=== PATIENT | female | born 1940 | race Caucasian/White ===

== ENCOUNTER 2019-03-26 05:57 | Inpatient (IN) | payer MEDICARE, OTHER ==
[~2019-03-26] VITALS: Ht 157.5 cm; Wt 59.4 kg
[2019-03-26] VITALS (38 sets, daily range): BP systolic 88–164; BP diastolic 39–77
[~2019-03-26 05:57] MED LIST: ASA81BEC PO; BACLOFEN 10MG T10 MG PO; HUMALOG100 UNIT/1 SUBQ; IPRAT-ALBUT 0.5-3 ML INH; ISOSORBIDE DINI30 MG PO; LANTUS SUBQ; LEVOXYL112 MCG PO; LIPITOR40 MG PO; MELOXICAM15 MG PO; NEURONTIN300 MG PO; PULMICORT1 MG/2 ML INH; TOPROL XL50 MG PO; XARELTO20 MG PO
[2019-03-26 06:55] LABS: ABSOLUTE LYMPHOCYTES 0.6 thou/uL (0.8-5.3); ABSOLUTE NEUTROPHILS 4.3 thou/uL (1.6-8.1); BASOPHILS 0.1 %; MCH 28.3 pg (26.0-34.0); MPV 8.7 fl. (7.2-11.1); WBC 5.4 thou/uL (4.0-11.0)
[2019-03-26 06:57] LABS: ABSOLUTE MONOCYTES 0.5 thou/uL (0.0-1.2); EOSINOPHILS 0.6 %; LYMPHOCYTES 10.5 %; MCHC 32.3 g/dL (28.0-37.0); MCV 87.6 fL (80.0-100.0); MONOCYTES 8.4 %; NUCLEATED RBCS 0 /100WBC; PLATELET COUNT* 223 thou/uL (150-400); POLYS 80.4 %; RBC 3.53 mil/uL (4.20-5.00); RDW-CV 14.2 % (10.5-14.5)
[2019-03-26 07:01] LABS: CALCIUM 9.2 mg/dL (8.5-10.1); CREATININE 1.1 mg/dL (0.6-1.3); POTASSIUM 4.7 mmol/L (3.5-5.1)
--- NOTE | 2019-03-26 13:17 | EKG ---
[place] [address] ELECTROCARDIOGRAM REPORT Name: JAJA DIAZ Room: [address] ADM IN ..#: [id number] Admission: 03/26/19 Attend Phys: Harsh Galvan Discharge: Date of : 38 Report #: [id number] THIS REPORT FOR: //name// [facility] Test Date: 2019-03-26 Test Time: 07:28:24 Pat Name: JAJA DIAZ Department: Room: [facility] Gender: F Dimpling Machine Operator: : 1940 Requested By: Eyad Robins Order Number: [id number] Neema MD: Rico Viera Measurements Intervals [place] Rate: 76 P: IN: QRS: 262 QRSD: 108 T: 37 QT: 371 QTc: 418 Interpretive Statements Atrial fibrillation LAD, consider left anterior fascicular block Probable anteroseptal infarct, old No previous ECG available for comparison Electronically Signed On 03-26-2019 13:17:21 KITCHEN MECHANIC by Rico Viera [email or web address] <ELECTRONICALLY SIGNED> By: Rico Viera MD, [facility] 03/26/19 1317 7 7 Rico Viera MD, FACC /EPI
[2019-03-26] MEDS ORDERED: NORCO 5-325 TA1 EAC1 PO (14:16)
--- NOTE | 2019-03-26 18:30 | NUR ---
THIS PRINTED CIRCUIT BOARD LAYOUT DESIGNER ASSUMED CARE OF PT AT 1145 POST SURGERY. PT HAD A SCHEDULED L CARTOID CLEAN OUT TOLERATED WELL INCISION INTACT NO DRAINAGE NOTED AT THIS TIME NO BRUISING DERMABON IN PLACE TO CLOSE. CARDENE TITRATED OFF AT NOON. B/P ON LOW SIDE AROUND 1800 CONTINUE TO MONITOR PT DID RECEIVE PAIN MEDICATION AND MUSCLE RELAXER MAO IS GREATER THAN 65. ADVANCED TO CARB CONTROLLED DIET FOR DINNER CONSUMED ALL OF DINNER FAMILY IN AND OUT OF ROOM THROUGHOUT DAY PT IN BED RESTING
[2019-03-27] VITALS (38 sets, daily range): BP systolic 53–190; BP diastolic 33–112
[2019-03-27 04:32] LABS: HEMOGLOBIN 9.4 gm/dL (12.0-15.0); MCH 28.5 pg (26.0-34.0); MCHC 32.4 g/dL (28.0-37.0); MCV 87.9 fL (80.0-100.0); MPV 8.2 fl. (7.2-11.1); RBC 3.3 mil/uL (4.20-5.00); RDW-CV 14.4 % (10.5-14.5); WBC 8.8 thou/uL (4.0-11.0)
--- NOTE | 2019-03-27 04:32 | NUR ---
PATIENT JUST WOKE UP WHEN LAB WAS TRYING TO DRAW BLOOD, NOTICED A CLEAR CHANGE IN MENTATION. PATIENT ALERT AND ORIENTED X4, APPROPRIATE AND ABLE TO USE THE BEDSIDE COMMODE WITH MINIMAL ASSISTANCE AT THE BEGINNING OF SHIFT. PATIENT DISORIENTED, DOES NOT REMEMBER WHY SHE IS HERE AND REFUSING FOR HER BLOOD TO BE DRAWN. PT ALSO GIGGLES WHEN ASKED IF SHE KNOWS WHERE SHE IS AND OTHER SIMILAR ORIENTATION QUESTIONS AND ASKS STAFF TO "GET OUT OF HERE". PT ASKED TO USE THE COMMODE AND WHEN WENT AHEAD AND URINATED WHILE SITTING AT THE EDGE OF THE BED, REPORTS SHE IS USING THE COMMODE. VITALS STABLE, NO CHANGE TO LEFT NECK CAROTID SIDTE, EQUAL AND STRONG RADIAL PULSES. WILL CONTINUE MONITORING. WILL CONTINUE MONITORING.
[2019-03-27 04:40] LABS: CALCIUM 8.8 mg/dL (8.5-10.1); CREATININE 1.4 mg/dL (0.6-1.3); POTASSIUM 5.1 mmol/L (3.5-5.1)
--- NOTE | 2019-03-27 10:49 | NUR ---
MET WITH PT AND FAMILY CAREGIVER IN PT ROOM. PT ALERT, ORIENTED TO PERSON, BUT MILD CONFUSION, REORIENTS EASILY WHEN INFORMATION IS PROVIDED. AT TIMES, ASKING CATHODE MAKER OR FAMILY TO ANSWER QUESTIONS SHE'S NOT CLEAR ON. NO ANTICIPATED NEEDS FOR DISCHARGE. HAS SUPPORTIVE FAMILY.
[2019-03-27] MEDS ORDERED: TRAMADOL 50 MG50 MG PO (11:02)
--- NOTE | 2019-03-27 12:00 | NUR ---
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
--- NOTE | 2019-03-27 12:55 | NUR ---
PT GOT UP TO WALK AND GET UP TO BSC WITH NURSE BEFORE D/C.PT IS STILL VERY CONFUSED AND JERKY.PT BEGAN TO VOMIT.PT ESCORTED BACK TO BED AND CLEANED UP.VSS.DOCOTOR NOTIFIED.
--- NOTE | 2019-03-27 13:14 | NUR ---
VASCULAR CANCELLED DISCHARGE.WILL MONITOR PT FOR ONE MORE DAY.
--- NOTE | 2019-03-27 17:40 | NUR ---
PT IS STILL VERY CONFUSED.CT OF HEAD COMPLETED.PT APPEARS TO BE MORE CONFUSED WHEN SHE WAKES UP FROM SLEEP.PT YELLED AT GRANDDAUGHTER AND THREATENED TO LEAVE THE HOSPITAL.PT REMAINS ON 2L O2 NC WHILE SLEEPING.PT IS WEAK AND HAS JERKING MOVEMENTS IN ALL EXTREMETIES.NURSES JUDGEMENT WAS USED TO USE A BEDPAN INSTEAD OF GETTING UP FOR THE REST OF THE EVENING.UA COLLECTED.BATH GIVEN.NO C/O PAIN THIS AFTERNOON.PT HAS HAD POOR APPETITE THIS AFTERNOON AND REFUSED TO EAT LUNCH AND DINNER.PT AND FAMILY INFORMED OF PLAN OF CARE AND COMMUNICATES UNDERSTANDING.HOURLY ROUNDING COMPLETED FOR PT SAFETY.CALL LIGHT AND FALL PRECAUTIONS IN PLACE.WILL CONTINUE TO MONITOR FOR DURATION OF SHIFT.
[2019-03-27 17:45] LABS: URINE BILIRUBIN NEGATIVE (Negative); URINE BLOOD NEGATIVE (Negative); URINE CLARITY CLEAR; URINE COLOR YELLOW; URINE GLUCOSE-RANDOM NEGATIVE (Negative); URINE KETONES NEGATIVE (Negative); URINE LEUKOCYTES TRACE (Negative); URINE NITRITE NEGATIVE (Negative); URINE PROTEIN NEGATIVE (Negative); URINE SPECIFIC GRAVITY <= 1.005 (1.005-1.030); URINE UROBILINOGEN 0.2 E.U./dl (0.2-1.0)
[2019-03-27 17:54] LABS: BACTERIA 1-9 Few /HPF (None Seen); CASTS None Seen /LPF (None Seen); CRYSTALS None Seen /LPF (None Seen); SQUAMOUS 0-3 Few /LPF (0-3); URINE RBC 0-2 Rare /HPF (0-2); URINE WBC 0-5 Rare /HPF (0-5)
[2019-03-28] VITALS (13 sets, daily range): BP systolic 105–170; BP diastolic 34–87
--- NOTE | 2019-03-28 05:52 | NUR ---
PT INCREASINGLY CONFUSED THROUGH THE NIGHT, VERY DIFFICULT TO REORIENT. COMPLAINS OF NECK PAIN. GRANDDAUGHTER, JACQUELINE, REPORTS TO THIS NURSE THAT PT WAS PUT ON DEMENTIA MEDICATION ABOUT FOUR MONTHS AGO BUT PT STOPPED TAKING IT BECAUSE IT WASN'T HELPING. OTHERWISE UNEVENTFUL NIGHT. PT EMOTIONAL AT TIMES. SITTER AT BEDSIDE.
[2019-03-28 09:20] LABS: HEMATOCRIT 31.7 % (37.0-47.0); HEMOGLOBIN 10.5 gm/dL (12.0-15.0); MCH 28.8 pg (26.0-34.0); MCV 87.3 fL (80.0-100.0); MPV 8.8 fl. (7.2-11.1); RBC 3.64 mil/uL (4.20-5.00); RDW-CV 14.5 % (10.5-14.5)
[2019-03-28 09:32] LABS: CALCIUM 9.5 mg/dL (8.5-10.1); CREATININE 1.1 mg/dL (0.6-1.3); POTASSIUM 4.8 mmol/L (3.5-5.1)
[2019-03-28] MEDS ORDERED: NEURONTIN600 MG PO (10:17)
--- NOTE | 2019-03-28 10:44 | NUR ---
Discharge Plan: Per Grand-daughter, she and her sister plan to provide 24/7 cares for patient in patient's current apartment when she is stable for discharge. Their prison plan (1-2 months) is to determine which of their home will be safest for patient, and to move patient to one of their homes. I discussed with Dr. Elliott, and also with G-daughter for possible home health at discharge. Dr. Elliott in agreement when patient is more medically stable and closer to discharge readiness. G-daughter with no expressed preference for HH agency when inquired, stating she has no familiarity with any of the agencies. PLAN: remain available to assist with discharge planning readiness.
--- NOTE | 2019-03-28 11:46 | NUR ---
PROVIDED LIST OF HOME HEALTH AGENCIES TO G-DAUGHTER. EXPLAINED HOSPITAL PREFERRED PROVIDER OPTION PART OF COMPLETE LIST. ADVISED FAMILY THIS ALLOWS TIME FOR DISCUSSION WITH OTHER FAMILY FOR AGENCY OF CHOICE. WHEN DR IDENTIFIES TIMELINE CLOSER TO DISCHARGE, DECISION FOR PROVIDER WILL BE MADE AND CAN PROCEED WITH . ORDER TO AGENCY OF FAMILY CHOICE. EXPRESSED UNDERSTANDING AND AGREEMENT.
--- NOTE | 2019-03-28 17:06 | PATH ---
[facility] [address] [place] [address] PATHOLOGY RPT PROCEDURE Name: ZABRINA DIAZ Room: [address] IN ..#: [id number] Admission: 03/26/19 Date of : 38 Discharge: Report #: [id number] Path Case #: [id number] [facility] Accession Number: [id number] . 01 Material submitted: . carotid body - LEFT CAROTID PLAQUE. Modifiers: left . 01 Clinical history: . Left carotid stenosis . 02 Diagnosis: Left carotid plaque: - Fibrointimal atherosclerotic plaque with prominent calcification. (CIELO:pit; 03/28/2019) QTP 03/28/2019 1239 Local . 02 Electronically signed: . Javad Samuels MD, Pathologist NPI- [id number] . 01 Gross description: . The specimen is received in formalin, labeled "Zabrina Diaz, left carotid plaque". Received is a segment of moderately calcified plaque measuring 2.1 x 1.6 x 0.8 cm in greatest dimensions. The specimen is submitted representatively in cassette A1, following decalcification. (CAA; 03/27/2019) QAC/QA 03/27/2019 0916 Local . 02 Pathologist provided ICD-10: I77.1 . 02 CPT . 997935, [id number] Specimen Comment: A courtesy copy of this report has been sent to [phone] Specimen Comment: [id number] Specimen Comment: Report sent to / DR MARTINEZ Performed at: [address] [facility] [id number] [facility] [address], [place], [place] [id number] MD Simon Rolle MD Phone: [phone] Performed at: [facility] [address], [place], [place] [id number] MD Javad Samuels MD Phone: [phone]
[2019-03-29] VITALS: BP 152/81
[2019-03-29 04:00] VITALS: BP 158/58
[2019-03-29 04:36] LABS: HEMATOCRIT 31.8 % (37.0-47.0); HEMOGLOBIN 10.3 gm/dL (12.0-15.0); MCH 28.1 pg (26.0-34.0); MCHC 32.3 g/dL (28.0-37.0); MCV 86.9 fL (80.0-100.0); MPV 8.6 fl. (7.2-11.1); RBC 3.66 mil/uL (4.20-5.00); RDW-CV 14.7 % (10.5-14.5); WBC 7.5 thou/uL (4.0-11.0)
[2019-03-29 05:04] LABS: CALCIUM 9.8 mg/dL (8.5-10.1); MAGNESIUM 1.8 mg/dL (1.8-2.4); POTASSIUM 4.3 mmol/L (3.5-5.1)
--- NOTE | 2019-03-29 05:04 | NUR ---
ASSUMED CARE OF PT AT 1900. PT IS VERY CONFUSED AND IMPULSIVE AT TIMES. FAMILY IS STAYING IN ROOM WITH PT. VSS. NELSON. SOME PAIN NOTED. PT IS A FIB ON THE TELEMETRY. PT IS RESTING COMFORTABLY IN BED. RESPIRATIONS ARE EVEN AND NONLABORED. WILL CONTINUE TO MONITOR PT.
[2019-03-29 08:40] VITALS: BP 132/74
--- NOTE | 2019-03-29 08:40 | NUR ---
ASSUMED CARE AFTER REPORT APPROX 0730. OX1, NOT ABLE TO EXPRESS NEEDS FROM STAFF. ASSESSMENT COMPLETE, VS OBTAINED, WNL, O2 SAT 97% RA. 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 FAMILY IN ROOM AND IS ASSISTING WITH RE-ORIENTING THE PATIENT. PATIENT ABLE TO EXPRESS A FEW WORDS, THEN SPEECH BECOMES GARBLED. FREQUENT CHECKS FOR PATIENT NEEDS/SAFETY.
[2019-03-29 11:43] VITALS: BP 138/63
[2019-03-29 16:00] VITALS: BP 128/68
[2019-03-29 20:00] VITALS: BP 142/68
[2019-03-30] VITALS: BP 143/68
[2019-03-30 03:54] VITALS: BP 100/47
--- NOTE | 2019-03-30 06:53 | NUR ---
ASSUMED CARE OF PT AFTER REPORT AT 1930. PT A&OX1. CONFUSED. VSS. PHYSICAL ASSESSMENT COMPLETED AND CHARTED. PT ON RA. PT TRACING AFIB ON TELE. PT UP WITH ASSIST TO BSC. PT COMPLAINED OF LEFT ARM PAIN-MEDS GIVEN PER MAR. PT ABLE TO SLEEP WELL ON BED. FAMILY AT BEDSIDE. CALL LIGHT WITHIN REACH.
[2019-03-30 08:00] VITALS: BP 112/67
[2019-03-30] MEDS ORDERED: MACROBID 100 M100 MG PO (09:38)
[2019-03-30] MEDS ORDERED: NEURONTIN 300300 M1 PO (09:38)
[2019-03-30] MEDS ORDERED: TOPROL XL50 MG PO (09:38)
[2019-03-30 11:44] VITALS: BP 91/54
--- NOTE | 2019-03-30 13:10 | NUR ---
FOLLOW UP WITH PT AND FAMILY REGARDING CHOICE OF HOME HEALTH PROVIDERS. THEY [facility] WITH PHONE #[phone] AND FAX 3:[phone]. ORDERS AND REQUIRED DOCUMENTS FAXED.
[2019-03-30 16:14] VITALS: BP 102/35
--- NOTE | 2019-03-30 19:36 | NUR ---
PT VSS WITH THE EXCEPTION OF AFIB/ TACHYCARDIA ON TELE DURING AMBULATION. HOURLY ROUNDING PERFORMED. POSSESSIONS AND CALL LIGHT WITHIN REACH. GRANDDAUGHTER AT BEDSIDE MOST OF THE DAY.
[2019-03-30 20:00] VITALS: BP 107/57
[2019-03-31] VITALS: BP 95/45
[2019-03-31 04:30] VITALS: BP 129/62
--- NOTE | 2019-03-31 06:20 | NUR ---
ASSUMED CARE OF PT AFTER REPORT AT 1930. PT A&OX4. FORGETFUL. CONFUSED AT TIMES . VSS. PHYSICAL ASSESSMENT COMPLETED AND CHARTED. PT ON RA. PT TRACING AFIB ON TELE. PT UPSTANDBY. PT COMPLAINED OF LEFT ARM PAIN-MEDS GIVEN PER MAR. PT ABLE TO SLEEP WELL ON BED. CALL LIGHT WITHIN REACH.
[2019-03-31 08:00] VITALS: BP 126/78
[2019-03-31] MEDS ORDERED: LANOXIN125 MCG PO (11:05)
[2019-03-31 11:47] VITALS: BP 146/69
[2019-03-31 12:00] VITALS: BP 146/69
--- NOTE | 2019-03-31 13:29 | NUR ---
PT VSS, PT A&OX4, PT HIGH FALL RISK, HOURLY ROUNDING PERFORMED. POSSESSIONS AND CALL LIGHT WITHIN REACH. FAMILY AT BEDSIDE. REC DISCHARGE ORDERS, REVIEWED WITH PATIENT. CARE PATIENT SCRIPT AND CARE NOTES. REMOVED TELE MONITOR AND IV WITHOUT COMPLICATION. PATIENT TAKEN TO THE FRONT DOOR IN WHEELCHAIR BY NURSING STAFF. PICKED UP BY GRANDDAUGHTER IN CAR.
--- NOTE | 2019-04-01 10:56 | CON ---
[address] [address] CONSULTATION Name: JAJA DIAZ Room: [address] IN ..#: [id number] Admission: 03/26/19 Attend Phys: Harsh Galvan Discharge: 03/31/19 Date of : 38 Report #: [id number] THIS REPORT FOR: //name// CC: Antonella Aguila DATE OF SERVICE: 03/31/2019 CARDIOLOGY CONSULTATION HISTORY OF PRESENT ILLNESS: The patient is an 79-year-old single white female who I was asked to see in the hospital today after she was noted to be in atrial fibrillation. The history is obtained from the patient's some old records as well as the granddaughter who is present. The patient initially presented back in 2009 with a heart murmur. She apparently underwent 2-vessel coronary artery bypass surgery followed by replacement of 2 cardiac valves using tissue valves at [facility] in [place]. According to the daughter, after surgery, she developed a sternal wound infection and had to have resternotomy with a wound VAC placed for 6 months. She eventually ____ out of the surgery. She was on warfarin for a period of time. She has had a long history of atrial fibrillation. She apparently has never been cardioverted. She was apparently off anticoagulation several years ago when she developed a blood clot in her right leg and was admitted to [facility] and placed on Xarelto. She had no further bleeding problems. She is not very active at this time and uses a cane. She does fall occasionally. Recently, the patient complained of blurred vision. She was admitted to [facility] and found to have a 95%, left carotid stenosis. She was admitted here to [facility] 5 days ago and underwent left carotid endarterectomy after holding her Xarelto for 2 days. After surgery, she was placed back on Xarelto. She has had some confusion at night. She denied any chest pain, shortness of breath, palpitations, lightheadedness. On the monitor, the rate of her atrial fibrillation was noted to be increased. Cardiology consultation was requested. She denied any chest pain, shortness of breath, lightheadedness, bleeding. PAST MEDICAL HISTORY: Otherwise significant for bilateral knee replacement, back surgery. She had ovarian cancer years ago, hypertension, diabetes. MEDICATIONS: On admission consisted of aspirin 81 mg a day, Lipitor, baclofen, Pulmicort, Neurontin, hydrocodone, insulin, albuterol inhaler, Imdur, Synthroid, meloxicam. She was on Xarelto that was stopped 4 days ago. She was on metoprolol XL 50 mg a day. She has had previous esophageal stricture. 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 ALLERGIES: [place] [address] CONSULTATION Name: JAJA DIAZ [address] [id number] Admission: 03/26/19 Attend Phys: Harsh Galvan Discharge: 03/31/19 Date of : 38 Report #: [id number] FAMILY HISTORY: Noncontributory. SOCIAL HISTORY: She is , lives by herself. Quit smoking years ago. No alcohol abuse. REVIEW OF SYSTEMS: No history of stroke. She has a history of asthma. No history of peptic ulcer disease, liver disease, kidney disease, psychiatric illness or chronic skin condition. PHYSICAL EXAMINATION: GENERAL: Revealed an elderly male, lying in bed. She appeared in no distress. VITAL SIGNS: Showed a blood pressure 120/80, pulse is 70. She is afebrile. HEENT: She was anicteric. Conjunctivae are pink. Mucous membranes moist. NECK: Veins do not appear distended. CHEST: Clear to auscultation. CARDIOVASCULAR: Regular rate and rhythm, grade 3 systolic ejection murmur along the left sternal border. ABDOMEN: Soft. EXTREMITIES: Had no edema. Dorsalis pedis pulse 1+ bilaterally. SKIN: Warm and dry. NEUROLOGIC: Nonfocal. ECG showed atrial fibrillation with an increased ventricular response rate, septal Q-waves were noted. Her portable chest x-ray on admission, cardiomegaly, otherwise clear lung joya. She had an MRI of the head performed without contrast showed chronic changes. LABORATORY DATA: Total sodium 142, creatinine 1.0. TSH 0.3. White blood cell count 7.5, hematocrit 31.8. Urinalysis is negative for protein, trace leukocytes. IMPRESSION AND RECOMMENDATIONS: 1. Permanent atrial fibrillation. Rate controlled with a beta jocelyne. If heart rate is increased, I would recommend adding digoxin. 2. Previous coronary artery bypass surgery. No recurrent angina. 3. Previous embolic event to the leg. I would continue Xarelto. 4. Previous double-valve replacement surgery using tissue valves. The valves appeared to be functioning normally. 5. History of deafness. 6. Previous tobacco abuse. 7. Confusion at night. 8. Previous carotid endarterectomy. [place] [address] CONSULTATION Name: JAJA DIAZ Room: [address]#: [id number] Admission: 03/26/19 Attend Phys: Harsh Galvan Discharge: 03/31/19 Date of : 38 Report #: [id number] 9. Diabetes. 10. Previous history of ovarian cancer. <ELECTRONICALLY SIGNED> By: Rico Viera MD, FACC 04/01/19 1056 0915 1202Daviharsh Viera MD, FACC /nt
--- NOTE | 2019-04-03 10:36 | EKG ---
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
--- NOTE | 2019-04-06 13:36 | CON ---
[address] [address] CONSULTATION Name: JAJA DIAZ Room: [address] IN ..#: [id number] Admission: 03/26/19 Attend Phys: Harsh Galvan Discharge: 03/31/19 Date of : 38 Report #: [id number] THIS REPORT FOR: //name// CC: Antonella Aguila DATE OF SERVICE: 03/28/2019 HISTORY OF PRESENT ILLNESS: This is an 79-year-old female patient who was evaluated by me for confusion. The granddaughter provided some history and she indicated that the patient had some memory issues, but was functional. She was even able to drive. She had a left carotid endarterectomy and since then she has been confused. The possibility of a stroke was considered and she had an MRI and MRI did not really show any acute stroke. REVIEW OF SYSTEMS: Indicates a left carotid stenosis and stroke-like symptoms and ____ she has a neuropathy. She has a history of anxiety, depression, COPD, hypothyroidism, hypertension, cardiac problems in the past. She was on Xarelto. Xarelto was held for surgery as I understand from the family. This was a relevant 14-point review of system. PAST MEDICAL HISTORY: Positive for left carotid stenosis. FAMILY HISTORY: Unremarkable. SOCIAL HISTORY: She has a supporting family with a granddaughter, who is here. PHYSICAL EXAMINATION: NEUROLOGIC: Indicates she is alert. She is responsive. She can follow simple commands, but she is not oriented. She could not tell me what month it is. She talked irrelevantly. She appeared to be restless. Cranial nerve examination 2-12 does not show any focality. Neuromuscular examination also does not show any focality. No change has been noticed in this patient. There is no meningeal sign. She did not cooperate with the fundus examination. No respiratory difficulty. Her vision and hearing looks adequate. VITAL SIGNS: Blood pressure is 121/57, respirations 16, pulse is 100. LABORATORY DATA: White count of 8 and sodium was 142. MRI films were reviewed and it does not show any acute stroke. IMPRESSION AND PLAN: This patient probably has encephalopathy[place] [address] CONSULTATION Name: JAJA DIAZ Chad Room: [address]#: [id number] Admission: 03/26/19 Attend Phys: Harsh Galvan Discharge: 03/31/19 Date of : 38 Report #: [id number] it more time to see if it resolves. I will get an EEG done. I do not believe anything else needs to be done neurologically at this time. <ELECTRONICALLY SIGNED> By: Raheem Perkins MD 04/06/19 1336 1341 2232Pjoshua Perkins MD /shorty
--- NOTE | 2019-04-07 07:12 | OP ---
[facility] [address] [place] [address] OPERATIVE REPORT Name: JOEJAJA L Room: [address]#: [id number] Admission: 03/26/19 Attend Phys: Harsh Galvan Discharge: 03/31/19 Date of : 38 Report #: [id number] THIS REPORT FOR: //name// CC: Antonella Aguila DATE OF SERVICE: 03/26/2019 PREOPERATIVE DIAGNOSIS: Severe left internal carotid artery stenosis. POSTOPERATIVE DIAGNOSIS: Severe left internal carotid artery stenosis. PROCEDURE: 1. Left carotid endarterectomy with patch angioplasty. 2. Intraoperative ultrasound with interpretation. FINDINGS ON ULTRASOUND: Normal waveform and velocity identified within the internal and common carotid arteries. Color flow imaging reveals patent flow in the external carotid artery. Morales-scale imaging shows no flaps or defects in the posterior wall. SURGEON: Eyad Robins MD ADULT LITERACY INSTRUCTOR: Phoebe Carney, certified surgical technician. COMPLICATIONS: None. ESTIMATED BLOOD LOSS: 100 mL. ANESTHESIA: General. SPECIMEN: Includes plaque. COMPLICATIONS: None. INDICATIONS FOR PROCEDURE: The patient is a very pleasant 79-year-old white female with incidental finding of severe left common and internal carotid artery stenosis. We plan for a left carotid endarterectomy today. Informed consent was obtained from the patient with risks including but not limited to bleeding, infection, need for further surgery, pain, , heart attack, stroke, cranial nerve injury. The patient understood all these risks and was agreeable to proceed. DESCRIPTION OF PROCEDURE: The patient was taken to the OR and placed in supine position. After adequate general anesthesia was initiated, left neck and chest [facility] [address] [place] [address] OPERATIVE REPORT Name: JAJA DIAZ Chad Room: [address] IN [facility].#: [id number] Admission: 03/26/19 Attend Phys: Harsh Galvan Discharge: 03/31/19 Date of : 38 Report #: [id number] were prepped and draped in usual sterile fashion. Timeout was performed. I created a transverse incision in the patient's left neck. Sharp and blunt dissections were carried down along the anterior border of sternocleidomastoid muscle. I encountered and divided the facial vein. I entered the carotid sheath. I controlled the common carotid artery as well as the branches of the internal and external carotid artery. I created a longitudinal arteriotomy on the common carotid artery leading into the internal carotid artery. There was severe plaque. I placed a 12 shunt without difficulty. I performed endarterectomy in standard fashion using a [place] elevator and a pair of pickups. I got a feathered edge leading into the internal carotid artery. I did an eversion endarterectomy of the external carotid artery. I took my time to remove the bits and pieces of plaque from posterior wall. I used a bovine pericardial patch and a running 6-0 Prolene suture to close my arteriotomy. At the completion of the repair, there was adequate hemostasis and excellent blood flow into the internal and external carotid arteries as documented by Doppler ultrasound. The patient tolerated the procedure well and was taken alert and awake to recovery room in good condition without evidence of TIA or stroke. All needle and instrument counts were correct at the end of the case. <ELECTRONICALLY SIGNED> By: Ananth Em DO 04/07/19 0712 1005 1033Eyad Robins MD /nt
== END 2019-03-31 13:10 | disposition home health service (06) | DRG 37 ==
LOC: M.TBA 05:57 → M.PRE 09:52 → M.ICU 11:44 → M.2W 03-28 12:23
PROVIDERS: Family Medicine; Internal Medicine; Surgery Vascular Surgery; ADMIT Internal Medicine
DX: I65.22 Occlusion and stenosis of left carotid artery (principal); G93.41 Metabolic encephalopathy; N17.9 Acute kidney failure, unspecified; N39.0 Urinary tract infection, site not specified; I48.21 Permanent atrial fibrillation; E11.40 Type 2 diabetes mellitus with diabetic neuropathy, unspecified; F41.9 Anxiety disorder, unspecified; F32.9 Major depressive disorder, single episode, unspecified; J44.9 Chronic obstructive pulmonary disease, unspecified; E03.9 Hypothyroidism, unspecified; I10 Essential (primary) hypertension; E86.0 Dehydration; Z96.653 Presence of artificial knee joint, bilateral; E78.5 Hyperlipidemia, unspecified; E11.51 Type 2 diabetes mellitus with diabetic peripheral angiopathy without gangrene; Z96.649 Presence of unspecified artificial hip joint; D64.9 Anemia, unspecified; E78.00 Pure hypercholesterolemia, unspecified; I25.10 Atherosclerotic heart disease of native coronary artery without angina pectoris; H91.92 Unspecified hearing loss, left ear; G31.89 Other specified degenerative diseases of nervous system; G89.4 Chronic pain syndrome; Z95.1 Presence of aortocoronary bypass graft; Z85.43 Personal history of malignant neoplasm of ovary; Z88.5 Allergy status to narcotic agent; Z87.891 Personal history of nicotine dependence; Z86.73 Personal history of transient ischemic attack (TIA), and cerebral infarction without residual deficits; Z79.82 Long term (current) use of aspirin; Z79.01 Long term (current) use of anticoagulants; Z95.2 Presence of prosthetic heart valve; Z86.711 Personal history of pulmonary embolism; Z79.4 Long term (current) use of insulin; Z79.891 Long term (current) use of opiate analgesic; Z79.899 Other long term (current) drug therapy; Z90.710 Acquired absence of both cervix and uterus; Z97.0 Presence of artificial eye